=== PATIENT | male | born 1970 | race Caucasian/White ===

== ENCOUNTER 2019-06-13 17:58 | Emergency (ER) | payer OTHER ==
[~2019-06-13 17:58] MED LIST: ALTERA NEBULIZ1 EACH MC; AMLODIPINE BESY1 TAB PO; ANTIHISTAMINE25 M3 PO; BREO ELLIPTA 21 EACH IH; CLINDAMYCIN150 MG PO; DEXTROAMPH SACC20 M1 PO; IBU800 M1 PO; LEVAQUIN500 M2 PO; MONTELUKAST SOD10 MG PO; Motrin,Rufen800 MG PO; NORCO 5-325 TA1 EACH PO; NOVAPLUS V0.09 MG/Ac IH; OMEPRAZOLE D/R20 MG PO; ORAL ANALGESIC12 ML DT; PRIMATENE 12.51 TAB PO; VYVANSE50 MG PO
[2019-06-13] MEDS ORDERED: AMOXICILLIN500 M2 PO (20:45)
[2019-06-13] MEDS ORDERED: PREDNISONE20 M1 PO (20:45)
[2019-06-13] MEDS ORDERED: LEVAQUIN750 M1 PO (21:22)
== END 2019-06-13 21:35 | disposition home or self-care (01) ==
LOC: ED 17:58
DX: J20.9 Acute bronchitis, unspecified (principal); J45.909 Unspecified asthma, uncomplicated; F17.200 Nicotine dependence, unspecified, uncomplicated; Z88.2 Allergy status to sulfonamides; Z79.899 Other long term (current) drug therapy

== ENCOUNTER 2019-06-19 10:40 | Inpatient (IN) | payer OTHER ==
[2019-06-19] VITALS (8 sets, daily range): BP systolic 104–130; BP diastolic 51–89
[~2019-06-19] VITALS: Ht 185.4 cm; Wt 99.1 kg
[~2019-06-19 10:40] MED LIST changes: +AMOXICILLIN500 M2 PO; +LEVAQUIN750 M1 PO; +PREDNISONE20 M1 PO
[2019-06-19 11:44] LABS: BILIRUBIN NEGATIVE (NEGATIVE); BLOOD NEGATIVE (NEGATIVE); CLARITY CLEAR (CLEAR); COLOR YELLOW (YELLOW); GLUCOSE NEGATIVE (NEGATIVE); KETONE NEGATIVE (NEGATIVE); LEUKO ESTERASE NEGATIVE (NEGATIVE); NITRITE NEGATIVE (NEGATIVE); SPECIFIC GRAVITY 1.025 (1.005-1.030); UROBILINOGEN 0.2 E.U./dl (0.2-1.0)
[2019-06-19 11:59] LABS: BACTERIA 1+; HYALINE CAST TNTC; MUCOUS 2+
[2019-06-19 12:00] LABS: BASO % 0.3 % (0.0-1.0); EOS # 0.1 10*3/uL (0.0-0.4); EOS % 0.7 % (1.0-4.0); HEMATOCRIT 33.5 % (42.0-52.0); HEMOGLOBIN 10.8 g/dl (14.0-18.0); LYMPH # 0.5 10*3/uL (1.3-4.4); LYMPH % 4.3 % (27.0-41.0); MEAN CORPUSCULAR HGB 27.4 pg (27.0-31.0); MEAN CORPUSCULAR HGB CONC 32.2 g/dl (33.0-37.0); MEAN PLATELET VOLUME 8.6 fl (9.6-12.3); MONO # 0.4 10*3/uL (0.1-1.0); MONO % 3.5 % (3.0-9.0); NEUT # 10.3 10*3/uL (2.3-7.9); NEUT % 88.9 % (47.0-73.0); PLATELET COUNT AUTOMATED 462 10*3/uL (130-400); RED BLOOD COUNT 3.94 10*6/uL (4.50-5.90); RED CELL DISTRI WIDTH 14.3 % (0-14.5); WHITE BLOOD COUNT 11.6 10*3/uL (4.8-10.8)
[2019-06-19 12:17] LABS: ALBUMIN 3.2 gm/dl (3.1-4.5); ALKALINE PHOSPHATASE 139 U/L (45-117); BUN 27 mg/dl (7-24); CHLORIDE 109 mmol/L (98-107); CREATININE 1.08 mg/dL (0.70-1.30); LIPASE 78 U/L (73-393); SGOT/AST 15 IU/L (3-35); SGPT/ALT 20 U/L (12-78); SODIUM 139 mmol/L (136-145); TOTAL PROTEIN 7.7 gm/dL (6.4-8.2)
[2019-06-20 01:45] VITALS: BP 118/79
--- NOTE | 2019-06-20 01:45 | NUR ---
A 48, admitted to , under the services of LIDYA Sultana DO with a diagnosis of PNEUMONIA. Chief complaint is SHORTNESS OF BREATH. Patient arrived via bed from ER. Monitor applied. Initial assessment completed. Vital signs taken and recorded. LIDYA SULTANA DO notified of admission to the unit. Orders received. See assessment for past medical history, medications and allergies. Patient and/or family oriented to unit. [facility]. Clothing/patient valuable form completed. BINDU FELDER
--- NOTE | 2019-06-20 01:45 | NUR ---
A 48, admitted to , under the services of LIDYA Sultana DO with a diagnosis of PNEUMONIA. Chief complaint is NAUSEA/VOMITING. Patient arrived via wheel chair from ER. Monitor applied. Initial assessment completed. Vital signs taken and recorded. LIDYA SULTANA DO notified of admission to the unit. Orders received. See assessment for past medical history, medications and allergies. Patient and/or family oriented to unit. [address] visitation policy reviewed. Clothing/patient valuable form completed. PELON REED
--- NOTE | 2019-06-20 02:29 | NUR ---
PT STATES "I HAVE A LAUNDRY LIST OF MEDS YOU WILL HAVE TO CALL MY PHARMACY TO GET ALL OF THEM AND THE CORRECT DOSES." WILL PASS ON TO DAYLIGHT SHIFT TO CALL PTS PHARMACY IN AM. PT USES [facility].
--- NOTE | 2019-06-20 02:39 | NUR ---
NOTIFIED UNABLE TO VERIFY MEDS WITH PT AND WE WILL HAVE TO CONTACT PHARMACY IN AM.
--- NOTE | 2019-06-20 04:30 | NUR ---
PTS IV SIKE IN RAC LEAKING. IV DISCONTINUED. IV started left antecubital # protective cath after 1 attempts. Site prepped with Chloroprep. Sterile dressing applied. Patient tolerated procedure well. IV infusing at 100 cc/hr. PELON REED
[2019-06-20 06:02] LABS: HEMATOCRIT 31.2 % (42.0-52.0); HEMOGLOBIN 9.9 g/dl (14.0-18.0); MEAN CORPUSCULAR HGB 27.3 pg (27.0-31.0); MEAN CORPUSCULAR HGB CONC 31.7 g/dl (33.0-37.0); MEAN PLATELET VOLUME 8.6 fl (9.6-12.3); PLATELET COUNT AUTOMATED 429 10*3/uL (130-400); RED BLOOD COUNT 3.63 10*6/uL (4.50-5.90); RED CELL DISTRI WIDTH 14.4 % (0-14.5); WHITE BLOOD COUNT 5.9 10*3/uL (4.8-10.8)
[2019-06-20 06:19] LABS: ALBUMIN 3.1 gm/dl (3.1-4.5); ALKALINE PHOSPHATASE 124 U/L (45-117); CHLORIDE 105 mmol/L (98-107); CHOLESTEROL 99 mg/dL (<200); CREATININE 0.95 mg/dL (0.70-1.30); FREE T4 0.72 ng/dl (0.76-1.46); HDL CHOLESTEROL 36 mg/dl (40-60); LDL CHOLESTEROL 45 mg/dL (9-159); PHOSPHOROUS 2.9 mg/dL (2.5-4.9); POTASSIUM 3.6 mmol/L (3.5-5.1); SGOT/AST 16 IU/L (3-35); SGPT/ALT 19 U/L (12-78); SODIUM 140 mmol/L (136-145); TOTAL PROTEIN 7.2 gm/dL (6.4-8.2); TRIGLYCERIDES 91 mg/dl (<150); VLDL CHOLESTEROL 18 mg/dL (6-40)
[2019-06-20 06:23] LABS: ACT PARTIAL THROMBO TIME 29.2 SECONDS (20.0-32.1); INTERNATIONAL NORM RATIO 1.1 (2.0-3.5)
[2019-06-20 06:29] LABS: TOTAL CELLS COUNTED 100 #CELLS
[2019-06-20 06:30] LABS: PLATELET SUFFICIENCY HIGH (NORMAL); POLYCHROMASIA SLIGHT
[2019-06-20 06:30] LABS: BUN 17 mg/dl (7-24)
[2019-06-20 07:22] LABS: VITAMIN D, 25-HYDROXY 18.2 ng/mL (30-100)
[2019-06-20 08:00] VITALS: BP 118/74
[2019-06-20] MEDS ORDERED: NATURE'S BLEND F1 MG PO (08:42)
[2019-06-20] MEDS ORDERED: ATORVASTATIN CA10 M1 PO (08:42)
[2019-06-20] MEDS ORDERED: CLONIDINE HCL0.2 MG PO (08:42)
[2019-06-20] MEDS ORDERED: CETIRIZINE HYDR10 MG PO (08:43)
--- NOTE | 2019-06-20 09:12 | NUR ---
DR GIRARD ROUNDED AND SEEN PT. ORDERS RECIEVED TO D/C ISOLATION AND CONSULT ID TO [facility].
--- NOTE | 2019-06-20 09:23 | NUR ---
DR FALLON'S OFFICE NOTIFIED OF NEW CONSULT TO [facility].
[2019-06-20 12:00] VITALS: BP 130/80
[2019-06-20] MEDS ORDERED: MELOXICAM15 MG PO (13:46)
[2019-06-20] MEDS ORDERED: QUETIAPINE FUM400 M1 PO (13:48)
[2019-06-20] MEDS ORDERED: VENLAFAXINE HY150 M2 PO (13:48)
--- NOTE | 2019-06-20 13:53 | NUR ---
NOTIFIED DR RAMÍREZ OF MED RECONCILIATION COMPLETED PER MED CLAIM HISTORY.WILL CALL PHARMACY PER DR MAN REQUEST.
[2019-06-20 16:00] VITALS: BP 125/78
--- NOTE | 2019-06-20 18:32 | NUR ---
DR FALLON ROUNDED AND SEEN PT.
[2019-06-20 20:00] VITALS: BP 132/77
--- NOTE | 2019-06-20 20:13 | NUR ---
PT RESTING IN BED. PT STATES HE THREW UP ONCE EARLIER TODAY AND HE IS FEELING NAUSEOUS NOW. MEDICATED WITH PRN ZOFRAN ORDERED. WILL CHECK EFFECTIVENESS. PT IS NOW OUT OF ISOLATION PER . PT HAS NO OTHER COMPLAINTS AT THIS TIME AND DENIES THE NEED FOR ANYTHING ELSE AT THIS TIME. ASSESSMENT COMPLETE. RESPIRATIONS EASY AND REGULAR. CALL LIGHT WITHIN REACH. WILL CONTINUE TO MONITOR.
--- NOTE | 2019-06-20 21:00 | NUR ---
PT STATES ZOFRAN WAS NOT EFFECTIVE AND STATES THAT HE THREW UP. PT STATES HE DOES NOT FEEL LIKE HE NEEDS ANYTHING ELSE RIGHT NOW AND FEELS BETTER AFTER THROWING UP.
[2019-06-21] VITALS (11 sets, daily range): BP systolic 105–118; BP diastolic 53–75
--- NOTE | 2019-06-21 04:07 | NUR ---
24 HR chart check completed.
[2019-06-21 07:05] LABS: BASO % 0.4 % (0.0-1.0); EOS # 0.2 10*3/uL (0.0-0.4); EOS % 3.9 % (1.0-4.0); HEMATOCRIT 29.1 % (42.0-52.0); HEMOGLOBIN 9.1 g/dl (14.0-18.0); LYMPH # 1.6 10*3/uL (1.3-4.4); LYMPH % 30.6 % (27.0-41.0); MEAN CELL VOLUME 86.4 fl (80.0-94.0); MEAN CORPUSCULAR HGB CONC 31.3 g/dl (33.0-37.0); MEAN PLATELET VOLUME 8.5 fl (9.6-12.3); MONO # 0.6 10*3/uL (0.1-1.0); MONO % 12.2 % (3.0-9.0); NEUT # 2.6 10*3/uL (2.3-7.9); NEUT % 51.3 % (47.0-73.0); PLATELET COUNT AUTOMATED 358 10*3/uL (130-400); RED BLOOD COUNT 3.37 10*6/uL (4.50-5.90); RED CELL DISTRI WIDTH 14.4 % (0-14.5); WHITE BLOOD COUNT 5.1 10*3/uL (4.8-10.8)
[2019-06-21 07:15] LABS: BUN 11 mg/dl (7-24); CHLORIDE 110 mmol/L (98-107); CREATININE 0.88 mg/dL (0.70-1.30); POTASSIUM 3.3 mmol/L (3.5-5.1); SODIUM 143 mmol/L (136-145)
--- NOTE | 2019-06-21 07:20 | NUR ---
PT TRANSFERRED VIA BED TO OR FOR [facility] WITH DR GIRARD.ASSESSMENT COMPLETE PRIOR TO TRANSPORT.
--- NOTE | 2019-06-21 11:58 | NUR ---
Slp in to talk to patient. Patient states lives at home with family. There are no steps in the home. Physician: [facility]acy: [facility] Home health services: none Patient's level of ADLs: INDEPENDENT Patient has working utilities: all working DME: none Follow-up physician's appointment after d/c: will be made by hospitalist nurse director upon discharge Does patient want to access PORTAL?: no Discharge plan discussed with patient, he lives at home is independent in adls and ambulation, works, he will return home when medically stable and denies any home needs. ARIANE HAMILTON
--- NOTE | 2019-06-21 15:38 | NUR ---
ORDER RECIEVED FROM DR CABALLERO TO D/C FLUIDS.
--- NOTE | 2019-06-21 19:20 | NUR ---
PT RESTING IN BED. NO COMPLAINTS AT THIS TIME. DENIES THE NEED FOR ANYTHING. PT STATES HE IS FEELING A LOT BETTER TODAY. ASSESSMENT COMPLETE. RESPIRATIONS EASY AND REGULAR. CALL LIGHT WITHIN REACH. WILL CONTINUE TO MONITOR.
--- NOTE | 2019-06-21 22:30 | NUR ---
24 HR chart check completed.
[2019-06-22] VITALS: BP 99/51
[2019-06-22 06:19] LABS: BASO % 0.5 % (0.0-1.0); EOS # 0.4 10*3/uL (0.0-0.4); EOS % 5.3 % (1.0-4.0); HEMATOCRIT 29.2 % (42.0-52.0); HEMOGLOBIN 9.1 g/dl (14.0-18.0); LYMPH % 30.2 % (27.0-41.0); MEAN CELL VOLUME 85.6 fl (80.0-94.0); MEAN CORPUSCULAR HGB 26.7 pg (27.0-31.0); MEAN CORPUSCULAR HGB CONC 31.2 g/dl (33.0-37.0); MEAN PLATELET VOLUME 9.1 fl (9.6-12.3); MONO # 0.6 10*3/uL (0.1-1.0); NEUT # 3.6 10*3/uL (2.3-7.9); NEUT % 54.1 % (47.0-73.0); PLATELET COUNT AUTOMATED 394 10*3/uL (130-400); RED BLOOD COUNT 3.41 10*6/uL (4.50-5.90); RED CELL DISTRI WIDTH 14.3 % (0-14.5); WHITE BLOOD COUNT 6.6 10*3/uL (4.8-10.8)
[2019-06-22 06:29] LABS: BUN 10 mg/dl (7-24); CHLORIDE 110 mmol/L (98-107); CREATININE 0.91 mg/dL (0.70-1.30); POTASSIUM 3.7 mmol/L (3.5-5.1); SODIUM 143 mmol/L (136-145)
[2019-06-22 08:00] VITALS: BP 122/68
--- NOTE | 2019-06-22 09:00 | NUR ---
case management visits with patient, he states he will return home when medically stable and denies any home needs, case management will follow
[2019-06-22 12:00] VITALS: BP 109/61
[2019-06-22 12:04] LABS: ACID FAST SPEC PROCESSING Concentration (.)
[2019-06-22 15:04] LABS: ACID FAST SPEC PROCESSING Concentration (.)
[2019-06-22 16:00] VITALS: BP 104/54; BP 113/62
--- NOTE | 2019-06-22 19:50 | NUR ---
24 HR chart check completed.
[2019-06-22 20:00] VITALS: BP 114/73
--- NOTE | 2019-06-22 21:00 | NUR ---
SLEEPING, AWAKENS EASILY. RESPIRATIONS EASY. LUNGS DIMINISHED. PULSE OX 100% RA. COUGH PRODUCTIVE FOR YELLOW. CALL LIGHT WITHIN REACH. NO VOICED COMPLAINTS.
--- NOTE | 2019-06-22 21:24 | NUR ---
REQUESTED AND RECEIVED TYLENOL PER PRN ORDER FOR COMPLAINTS OF BILATERAL KNEE PAIN RATING A 5. CALL LIGHT WITHIN REACH. WILL MONITOR FOR EFFECTIVENESS
--- NOTE | 2019-06-22 23:00 | NUR ---
EARLIER MEDS EFFECTIVE. SLEEPING. RESPIRATIONS EASY. CALL LIGHT WITHIN REACH
[2019-06-23] VITALS: BP 104/71
--- NOTE | 2019-06-23 00:30 | NUR ---
SLEEPING. RESPIRATIONS EASY. VSS. CALL LIGHT WITHIN REACH.
--- NOTE | 2019-06-23 05:30 | NUR ---
REQUESTED AND RECEIVED TYLENOL PER PRN ORDER FOR COMPLAINTS OF BILATERAL KNEE PAIN RATING A 5. CALL LIGHT WITHIN REACH. WILL MONITOR FOR EFFECTIVENESS
--- NOTE | 2019-06-23 06:00 | NUR ---
SLEPT THROUGHOUT NIGHT WITH NO DISTRESS NOTED. RESPIRATIONS EASY. CALL LIGHT WITHIN REACH. NO VOICED COMPLAINTS THIS SHIFT
--- NOTE | 2019-06-23 06:39 | NUR ---
EARLIER MEDS APPEAR EFFECTIVE. SLEEPING. RESPIRATIONS EASY. CALL LIGHT WITHIN REACH
[2019-06-23 08:00] VITALS: BP 112/68
--- NOTE | 2019-06-23 09:00 | NUR ---
case management visits with patient, he states he will return home when medically stable and denies any home needs
[2019-06-23] MEDS ORDERED: AUGMENTIN 875-875 MG PO (11:24)
--- NOTE | 2019-06-23 12:10 | NUR ---
PATIENT HAS LEFT THE FLOOR.
== END 2019-06-23 12:11 | disposition home or self-care (01) | DRG 137 ==
LOC: ED 10:40 → 4E 19:03 → EDHOLD 19:03 → ICCU 21:36 → 4E 06-20 01:15
PROVIDERS: Family Medicine; Internal Medicine; Internal Medicine Critical Care Medicine; Physician Assistant; ADMIT Internal Medicine
PROC: 0BBB8ZX Excision of Left Lower Lobe Bronchus, Via Natural or Artificial Opening Endoscopic, Diagnostic (ICD-10-PCS; principal; 2019-06-21)
PROC: 0BC78ZZ Extirpation of Matter from Left Main Bronchus, Via Natural or Artificial Opening Endoscopic (ICD-10-PCS; 2019-06-21)
DX: J85.1 Abscess of lung with pneumonia (principal); E87.8 Other disorders of electrolyte and fluid balance, not elsewhere classified; D64.9 Anemia, unspecified; K57.90 Diverticulosis of intestine, part unspecified, without perforation or abscess without bleeding; F32.9 Major depressive disorder, single episode, unspecified; I10 Essential (primary) hypertension; F17.210 Nicotine dependence, cigarettes, uncomplicated; E78.5 Hyperlipidemia, unspecified; F90.9 Attention-deficit hyperactivity disorder, unspecified type; K21.9 Gastro-esophageal reflux disease without esophagitis; J44.0 Chronic obstructive pulmonary disease with (acute) lower respiratory infection; J98.4 Other disorders of lung; D47.3 Essential (hemorrhagic) thrombocythemia; E55.9 Vitamin D deficiency, unspecified; E66.9 Obesity, unspecified; Z80.0 Family history of malignant neoplasm of digestive organs; Z71.6 Tobacco abuse counseling; Z83.3 Family history of diabetes mellitus; Z88.1 Allergy status to other antibiotic agents; Z79.899 Other long term (current) drug therapy; Z68.28 Body mass index [BMI] 28.0-28.9, adult

== ENCOUNTER 2019-11-20 19:59 | Inpatient (IN) | payer OTHER ==
[~2019-11-20] VITALS: Ht 185.4 cm; Wt 106.8 kg
[~2019-11-20 19:59] MED LIST changes: +ATORVASTATIN CA10 M1 PO; +AUGMENTIN 875-875 MG PO; +CETIRIZINE HYDR10 MG PO; +CLONIDINE HCL0.2 MG PO; +MELOXICAM15 MG PO; +NATURE'S BLEND F1 MG PO; +QUETIAPINE FUM400 M1 PO; +VENLAFAXINE HY150 M2 PO
[2019-11-20 20:12] VITALS: BP 129/77
[2019-11-20 21:21] LABS: BASO # 0.1 10*3/uL (0.0-0.1); BASO % 0.6 % (0.0-1.0); EOS # 0.6 10*3/uL (0.0-0.4); EOS % 4.7 % (1.0-4.0); HEMATOCRIT 35.9 % (42.0-52.0); LYMPH # 1.1 10*3/uL (1.3-4.4); LYMPH % 8.9 % (27.0-41.0); MEAN CELL VOLUME 88.9 fl (80.0-94.0); MEAN CORPUSCULAR HGB CONC 32.6 g/dl (33.0-37.0); MONO # 0.9 10*3/uL (0.1-1.0); MONO % 7.4 % (3.0-9.0); NEUT # 9.5 10*3/uL (2.3-7.9); NEUT % 77.9 % (47.0-73.0); PLATELET COUNT AUTOMATED 290 10*3/uL (130-400); RED BLOOD COUNT 4.04 10*6/uL (4.50-5.90); RED CELL DISTRI WIDTH 13.8 % (0-14.5); WHITE BLOOD COUNT 12.2 10*3/uL (4.8-10.8)
[2019-11-20 21:31] LABS: ACT PARTIAL THROMBO TIME 26.8 SECONDS (20.0-32.1)
[2019-11-20 21:35] LABS: ALBUMIN 3.7 gm/dl (3.1-4.5); BUN 17 mg/dl (7-24); CHLORIDE 108 mmol/L (98-107); CREATININE 1.06 mg/dL (0.70-1.30); POTASSIUM 3.4 mmol/L (3.5-5.1); SGOT/AST 18 IU/L (3-35); SGPT/ALT 26 U/L (12-78); SODIUM 139 mmol/L (136-145); TOTAL PROTEIN 7.2 gm/dL (6.4-8.2)
[2019-11-20 21:49] LABS: ALKALINE PHOSPHATASE 139 U/L (45-117)
[2019-11-20 23:08] VITALS: BP 122/69
[2019-11-20 23:15] VITALS: BP 135/81; BP 136/81
[2019-11-21] VITALS: BP 136/81
[2019-11-21 07:28] LABS: BASO # 0.1 10*3/uL (0.0-0.1); BASO % 0.7 % (0.0-1.0); EOS # 0.6 10*3/uL (0.0-0.4); EOS % 5.5 % (1.0-4.0); HEMATOCRIT 32.9 % (42.0-52.0); LYMPH # 1.7 10*3/uL (1.3-4.4); LYMPH % 16.2 % (27.0-41.0); MEAN CELL VOLUME 87.5 fl (80.0-94.0); MEAN CORPUSCULAR HGB 28.5 pg (27.0-31.0); MEAN CORPUSCULAR HGB CONC 32.5 g/dl (33.0-37.0); MEAN PLATELET VOLUME 10.1 fl (9.6-12.3); MONO # 1.2 10*3/uL (0.1-1.0); PLATELET COUNT AUTOMATED 252 10*3/uL (130-400); RED BLOOD COUNT 3.76 10*6/uL (4.50-5.90); RED CELL DISTRI WIDTH 13.9 % (0-14.5); WHITE BLOOD COUNT 10.6 10*3/uL (4.8-10.8)
[2019-11-21 07:38] LABS: BUN 13 mg/dl (7-24); CHLORIDE 110 mmol/L (98-107); POTASSIUM 3.5 mmol/L (3.5-5.1); SODIUM 140 mmol/L (136-145)
[2019-11-21 08:00] VITALS: BP 126/72
[2019-11-21] MEDS ORDERED: LAMICTAL CD5 MG PO (10:54)
[2019-11-21] MEDS ORDERED: WIXELA 100-501 EACH INH (10:57)
[2019-11-21] MEDS ORDERED: OMEPRAZOLE20 M3 PO (11:01)
[2019-11-21] MEDS ORDERED: MELOXICAM15 MG PO (11:01)
[2019-11-21 13:00] VITALS: BP 125/80
[2019-11-21 16:00] VITALS: BP 122/74
[2019-11-21 20:00] VITALS: BP 107/70
[2019-11-22] VITALS: BP 99/53
[2019-11-22 02:02] VITALS: BP 101/51
[2019-11-22 08:00] VITALS: BP 102/55
[2019-11-22] MEDS ORDERED: LAMICTAL100 MG PO (09:55)
[2019-11-22 12:00] VITALS: BP 111/71
[2019-11-22 16:00] VITALS: BP 123/63
[2019-11-22 20:00] VITALS: BP 108/55
[2019-11-23] VITALS: BP 116/68
[2019-11-23] MEDS ORDERED: LAMOTRIGINE100 MG PO (02:13)
[2019-11-23 07:38] LABS: BASO # 0.1 10*3/uL (0.0-0.1); BASO % 1.2 % (0.0-1.0); EOS # 0.5 10*3/uL (0.0-0.4); EOS % 8.3 % (1.0-4.0); HEMATOCRIT 32.2 % (42.0-52.0); LYMPH % 34.7 % (27.0-41.0); MEAN CELL VOLUME 88.5 fl (80.0-94.0); MEAN CORPUSCULAR HGB 28.6 pg (27.0-31.0); MEAN CORPUSCULAR HGB CONC 32.3 g/dl (33.0-37.0); MEAN PLATELET VOLUME 9.7 fl (9.6-12.3); MONO # 0.4 10*3/uL (0.1-1.0); MONO % 6.9 % (3.0-9.0); NEUT # 2.8 10*3/uL (2.3-7.9); NEUT % 48.2 % (47.0-73.0); PLATELET COUNT AUTOMATED 238 10*3/uL (130-400); RED BLOOD COUNT 3.64 10*6/uL (4.50-5.90); RED CELL DISTRI WIDTH 13.4 % (0-14.5); WHITE BLOOD COUNT 5.8 10*3/uL (4.8-10.8)
[2019-11-23 08:00] VITALS: BP 115/76
[2019-11-23 12:00] VITALS: BP 126/75
[2019-11-23 16:00] VITALS: BP 130/77
[2019-11-23 20:00] VITALS: BP 131/81
[2019-11-24] VITALS: BP 118/76
[2019-11-24 08:00] VITALS: BP 125/76
[2019-11-24] MEDS ORDERED: DOXYCYCLINE100 M3 PO (10:58)
[2019-11-24 12:00] VITALS: BP 131/79
== END 2019-11-24 12:42 | disposition home or self-care (01) | DRG 720 ==
LOC: ED 19:59 → 5E 22:56 → EDHOLD 22:56 → 5E 23:06
PROVIDERS: Internal Medicine; Nurse Practitioner Family; ADMIT Internal Medicine
DX: A41.9 Sepsis, unspecified organism (principal); L03.115 Cellulitis of right lower limb; E87.8 Other disorders of electrolyte and fluid balance, not elsewhere classified; E87.6 Hypokalemia; F17.210 Nicotine dependence, cigarettes, uncomplicated; D64.9 Anemia, unspecified; K57.90 Diverticulosis of intestine, part unspecified, without perforation or abscess without bleeding; K21.9 Gastro-esophageal reflux disease without esophagitis; I10 Essential (primary) hypertension; F32.9 Major depressive disorder, single episode, unspecified; F90.9 Attention-deficit hyperactivity disorder, unspecified type; E78.5 Hyperlipidemia, unspecified; E55.9 Vitamin D deficiency, unspecified; Z71.6 Tobacco abuse counseling; M19.071 Primary osteoarthritis, right ankle and foot; L03.116 Cellulitis of left lower limb; M65.88 Other synovitis and tenosynovitis, other site; F41.9 Anxiety disorder, unspecified; Z88.2 Allergy status to sulfonamides; Z79.899 Other long term (current) drug therapy; Z82.49 Family history of ischemic heart disease and other diseases of the circulatory system; Z83.3 Family history of diabetes mellitus; Z82.5 Family history of asthma and other chronic lower respiratory diseases; Z80.8 Family history of malignant neoplasm of other organs or systems; R00.1 Bradycardia, unspecified

== ENCOUNTER → 2023-01-01 | Outpatient (CLI) | payer OTHER ==
[~2023-01-01] MED LIST changes: +DOXYCYCLINE100 M3 PO; +LAMICTAL CD5 MG PO; +LAMICTAL100 MG PO; +LAMOTRIGINE100 MG PO; +OMEPRAZOLE20 M3 PO; +WIXELA 100-501 EACH INH
== END ==
LOC: CARD 14:50
PROVIDERS: ATTEND Physician Assistant
DX: Z51.81 Encounter for therapeutic drug level monitoring (principal)